=== PATIENT | female | born 1985 | race Caucasian/White ===

== ENCOUNTER 2023-12-14 10:06 | Outpatient (OUT) | payer OTHER, SELFPAY ==
--- NOTE | 2023-12-14 10:13 | US_ITS ---
Patient Name: ADAMS GALVAN MR#: [id number] : 1985 Exam Date: 12/14/2023 Ordering Doctor: DR KELSY ANGUIANO . RADIOLOGY REPORT PROCEDURE: MM TOMOSYNTHESIS DIAGNOSTIC BI, 12/14/2023, 09:19 US BREAST BI LIMITED, 12/14/2023, 10:40 COMPARISON: MG MAMM DIAGNOSTIC 3D ADRIEL CAD, 01/13/2023. INDICATIONS: breast lump in female N63.0 Calculator Name NCI Breast Cancer Risk Assessment Tool 5 Year Breast Cancer Risk 0.20% Lifetime Breast Cancer Risk 4.70% Personal Breast Cancer No Personal Ovarian Cancer No Treatments None Family Cancers None LOCATION: [facility] BREAST COMPOSITION: Heterogeneously dense,which may obscure small masses. FINDINGS: DIAGNOSTIC CATEGORY 4--SUSPICIOUS FOR MALIGNANCY. FINDING DOES NOT EXHIBIT CLASSIC FINDINGS OF BREAST CANCER: The breasts are stable in overall size and fibroglandular configuration with a nodular parenchymal pattern. Scattered calcifications. Benign appearing bilateral axillary lymph nodes. RIGHT BREAST: No mammographic abnormality to correspond to patient's axillary fullness. Right axillary ultrasound demonstrates a normal-size normal morphology lymph node at the 11 o'clock position measuring 9.4 x 9.5 x 13 mm with a thin cortex and hyper echogenic hypervascular hilum. LEFT BREAST: A new 10 x 6.7 x 9.2 mm partially circumscribed lobular nodule is noted in the lower inner quadrant, anterior to mid breast, this persists on spot images. Ultrasound demonstrates at the 7 o'clock position a 10.6 x 5.3 x 14.2 mm heterogeneous nodule solid and cystic components with a small amount of blood flow. Ultrasound core biopsy of this lesion is recommended. I am not entirely convinced that the ultrasound abnormality corresponds to the mammographic abnormality. Ultrasound core biopsy with clip placement and follow-up mammogram is required. If the ultrasound lesion is not congruent with the mammographic lesion, stereotactic biopsy may be required RECOMMENDATIONS: ULTRASOUND-GUIDED CORE BIOPSY: LEFT BREAST PLEASE NOTE: A NORMAL MAMMOGRAM DOES NOT EXCLUDE THE POSSIBILITY OF BREAST CANCER. A CLINICALLY SUSPICIOUS PALPABLE LUMP SHOULD BE BIOPSIED. Dictated by: Balaji Avila MD on 12/14/2023 at 11:32 Approved by: Balaji Avila MD on 12/14/2023 at 11:38
== END 2023-12-14 10:07 | disposition home or self-care (01) ==
LOC: MAMMO 10:06
PROVIDERS: PCP Family Medicine; Visit Provider Obstetrics & Gynecology
DX: N63.24 Unspecified lump in the left breast, lower inner quadrant (principal)
CPT/HCPCS: 76642; 77066; G0279

== ENCOUNTER 2024-01-05 09:21 | Day surgery (SDC) | payer OTHER, SELFPAY ==
--- NOTE | 2024-01-05 09:34 | MM_ITS ---
Patient Name: ADAMS GALVAN MR#: [id number] : 1985 Exam Date: 01/05/2024 Ordering Doctor: DR Henrry Lazcano . This report includes an Addendum and supersedes previous reports for this exam. RADIOLOGY REPORT PROCEDURE: MM POST BIOPSY LT COMPARISON: MM TOMOSYNTHESIS DIAGNOSTIC BI, 12/14/2023. INDICATIONS: Abnormal Mammogram BREAST COMPOSITION: The breasts are heterogeneously dense,which may obscure small masses. FINDINGS: Post-Procedure Mammogram for Marker Placement BIOPSY MARKER: A metallic marker has been placed in the targeted location within the lower inner quadrant of the left breast. BREAST FINDINGS: Postprocedural changes with subcutaneous air in the region of the targeted lesion the micro clip marker is slightly deeper likely related to spring affect Dictated by: Balaji Avila MD on 01/05/2024 at 11:42 Approved by: Balaji Avila MD on 01/05/2024 at 11:54 ADDENDUM: FINDINGS: DIAGNOSTIC CATEGORY 2--BENIGN FINDING: RECOMMENDATIONS: ROUTINE MAMMOGRAM AND CLINICAL EVALUATION IN 12 MONTHS. Dictated by: Balaji Avila MD on 01/11/2024 at 08:58 Approved by: Balaji Avila MD on 01/11/2024 at 08:58
--- NOTE | 2024-01-05 09:34 | US_ITS ---
Patient Name: ADAMS GALVAN MR#: [id number] : 1985 Exam Date: 01/05/2024 Ordering Doctor: DR Henrry Lazcano . This report includes an Addendum and supersedes previous reports for this exam. RADIOLOGY REPORT PROCEDURE: US BREAST VAC BX W/ CLIP LT COMPARISON: None. INDICATIONS: Abnormal Mammogram DESCRIPTION: After obtaining informed consent, a vacuum assisted ultrasound-guided biopsy was performed in the usual sterile manner. The location of the biopsy was then marked as indicated below. FINDINGS: RECOMMENDATIONS: SPECIMEN #, LOCATION: 5 samples left 7 o'clock breast mixed solid cystic lesion BIOPSY NEEDLE: 13 gauge Elite (r) vacuum core biopsy needle. MARKERS(S) PLACED: A single metallic marker was placed in the appropriate targeted location. MEDICATION: 3 cubic cm buffered % lidocaine without superficial, 6 cubic cm 1% with epinephrine deep COMPLICATIONS: None. PATHOLOGY LAB: Pending. CONCLUSION: 1. Uneventful ultrasound-guided breast biopsy. 2. Pathology results are pending. An addendum to this report will be provided after pathology results are available. Dictated by: Kayleigh Avila MD on 01/05/2024 at 10:55 Approved by: Kayleigh Avila MD on 01/05/2024 at 10:56 ADDENDUM: The pathology report is now available and shows benign findings concordant with the imaging findings. No evidence of malignancy. Pathology report was faxed to Dr. Lazcano's office and confirmed with Misty by telephone Dictated by: Kayleigh Avila MD on 01/11/2024 at 08:56 Approved by: Kayleigh Avila MD on 01/11/2024 at 08:57 US/US breast vac bx w/ clip LT IMPRESSION: 1. Uneventful ultrasound guided left breast core biopsy 2. Pathology results are pending. Electronically authenticated by: KAYLEIGH AVILA Date: 01/05/2024 11:42
[2024-01-05 09:40] VITALS: BP 116/75; PULSE 85; O2SAT 98
[2024-01-05] MEDS: LIDOCAINE HCL/EPINEPHRINE 10 ML, SODIUM BICARBONATE 1 MEQ INJ (10:30)
[2024-01-05] MEDS: LIDOCAINE HCL 10 ML, SODIUM BICARBONATE 1 MEQ INJ (10:30)
--- NOTE | 2024-01-05 11:19 | SUR.PREOP ---
12/24/23 Pt instructed on date, time, prep, and procedure.
== END 2024-01-05 11:00 | disposition home or self-care (01) ==
LOC: US 09:23
PROVIDERS: Radiology Diagnostic Radiology; PCP Family Medicine; Visit Provider Obstetrics & Gynecology
DX: N60.02 Solitary cyst of left breast (principal); N62 Hypertrophy of breast; R92.0 Mammographic microcalcification found on diagnostic imaging of breast
CPT/HCPCS: 19083; 77065; 88305; 99999

== ENCOUNTER 2025-08-21 14:54 | Outpatient (OUT) | payer OTHER, SELFPAY ==
--- OUTSIDE RECORDS SUMMARY | 2025-08-07 13:45 | XMS_ITS | Encounter Summary ---
Author Organization [facility] Address [address] [place] [address] Care Team Providers Care Data Warehouse Analyst Name Role Phone Jb Mendoza MD Primary Care Provider [phone] Source Comments In the event this information is protected by the Federal Confidentiality of Alcohol and Drug AbusePatient Records regulations: The Federal rules restrict any use of the information to criminally investigate or prosecute any alcohol or drug abuse patient.[facility] Reason for Visit * ReasonCommentsInjections Encounter Details DateTypeDepartmentCare Team (Latest Contact Info)Vnzuogavlja13/18/2025 1:45 PM ESTOffice Visit Dermatology [address] [place] [address] Megan Villarreal MD [address] [place] [address] Encounter for cosmetic procedure (Primary Dx) Social History Tobacco UseTypesPacks/DayYears UsedDateSmoking Tobacco: NeverSmokeless Tobacco: NeverAlcohol UseStandard Drinks/WeekCommentsYes0 (1 standard drink = 0.6 oz pure alcohol)holidays/occasionallySocial Connection and Isolation PanelAnswerDate RecordedIn a typical week, how many times do you talk on the phone with family, friends, or neighbors?More than three times a week07/22/2021How often do you get together with friends or relatives?Twice a week07/22/2021How often do you attend buddhist or protestant services?Never1Do you belong to any clubs or organizations such as buddhist groups, unions, fraternal or athletic groups, or school groups?No07/22/2021How often do you attend meetings of the clubs or organizations you belong to?Never07/22/2021re you , , , , never , or living with a partner?Bzdetgg6007/22/2021UDIT-C AnswerDate RecordedQ1: How often do you have a drink containing alcohol?2-4 times a month07/22/2021Q2: How many drinks containing alcohol do you have on a typical day when you are drinking?1 or Q3: How often do you have six or more drinks on one occasion?Never07/22/2021Overall Financial Resource Strain (CARDIA)AnswerDate RecordedHow hard is it for you to pay for the very basics like food, housing, medical care, and heating?Not hard at all07/22/2021HQ-2 AnswerDate RecordedPHQ-2 cyxll33809/21/2020Fin[facility] [place] of Occupational Health - Occupational Stress QuestionnaireAnswerDate RecordedDo you feel stress - tense, restless, nervous, or anxious, or unable to sleep at night because your mind is troubled all the time - these days?Not at all07/22/2021xercise Vital SignAnswerDate RecordedOn average, how many days per week do you engage in moderate to strenuous exercise (like a brisk walk)?3 days07/22/2021On average, how many minutes do you engage in exercise at this level?30 min07/22/2021Hunger Vital SignAnswerDate RecordedWithin the past 12 months, you worried that your food would run out before you got the money to buymore.Never true07/22/2021 Within the past 12 months, the food you bought just didn't last and you didn't have money to get more.Never true1PRAPARE - TransportationAnswerDate RecordedIn the past 12 months, has lack of transportation kept you from medical appointments or from getting medications?No07/22/2021In the past 12 months, has lack of transportation kept you from meetings, work, or from getting things needed for daily living?No07/22/2021Housing Stability Vital SignAnswerDate RecordedIn the last 12 months, was there a time when you were not able to pay the mortgage or rent on time?No07/22/2021In the last 12 months, how many places have you lived?In the last 12 months, was there a time when you did not have a steady place to sleep or slept in ashelter (including now)?No 1Area Deprivation IndexAnswerDate RecordedNational Score (1-100), lower number is lower pguy573408/07/2025State Score (1-10), lower number is lower risk4 08/07/2025Data from: https://www.neighborhoodatlas.medicine.[facility].edu/. Last address used for [address] [facility]08/07/2025CommentsNoSex and Gender InformationValueDate RecordedSex Assigned at BirthNot on fileLegal Sex Qorwll6508/21/2012 10:06 AM ESTGender IdentityNot on fileSexual OrientationNot on filedocumented as of this encounter Functional Status * Are you deaf or do you have serious difficulty hearing?AnswerDate of XtfjgsukkvYbbszqTe44/26/2015 8:42 AM Jody Lindsey Ma * Are you blind or do you have serious difficulty seeing, even when wearing glasses?AnswerDate of YfklyrxhvgOgkvggHq89/26/2015 8:42 AM Jody Lindsey Ma * Do you have serious difficulty walking or climbing stairs?AnswerDate of HyacxiezxaGqqgfmAz73/26/2015 8:42 AM Jody Lindsey Ma * Do you have difficulty dressing or bathing?AnswerDate of AssessmentAuthoVi 03/15/2015 8:42 AM EDTBarno Ma, Jody * Because of a physical, mental, or emotional condition, do you have difficulty doing errands alone such as visiting a doctor's office or shopping?AnswerDate of CsnxvmsmntGalxpmDv70/26/2015 8:42 AM Jody Lindsey Ma documented as of this encounter Mental Status * Because of a physical, mental, or emotional condition, do you have serious difficulty concentrating, remembering, or making decisions?AnswerEntry Date BxdphuGo94/26/2015 8:42 AM Jody Lindsey Ma documented in this encounter Patient Instructions * Patient Instructions* Trish Connors MA - 08/07/2025 1:56 PM EST Images from the original note were not included. Direct line to schedule [phone] or email [email or web address] Main campus: Wednesday & Bibi (Kevin Carter): Wednesday & Wednesday Start SM19 Hydroquinone 12% / Kojic Acid 6% / Niacinamide 2% / Vitamin C 1% Cream to dark spots only Skin Medicinals Your physician will send your prescription to the pharmacy through [email or web address]. Your Prescription You will receive an email from [email or web address] where you will follow the instructions within the email to provide your billing & shipping information. Your Verication Your medication will be shipped directly to you! Your Medication If you have any questions please email us at [email or web address] or call us at Can use code: [id number] Skincare Regimen AM Wash face with a cleanser 2. Then apply an antioxidant (Vitamin C, E, Ferulic acid) 3. After the anti-oxidant dries, apply an SPF at least 30 or higher You can apply makeup after sunscreen PM Wash face with a cleanser 2. Once skin is dry apply a Vitamin A based cream (retinol & adapalene are over the counter; tretinoin is prescription). These products can cause dryness and irritation, so use every other night or as tolerated. 3. It is ok to apply a moisturizer on top that contains hyaluronic acid 4. The nights you do not use a vitamin A cream, you can use a moisturizer alone or a growth factor/peptide product OTC products you can purchase on your own Antioxidant: Maelove Glow maker, The Ordinary Vitamin C 23% suspension SPF: [place]ay UltraSheer Antihelios Retinol: Differin 0.1% gel (adapalene), MARIMAR, Neutrogena Rapid wrinkle repair Moisturizer: Neutrogena Hydroboost, Maelove Script Editor Gel, [place] Hyal B5 documented in this encounter Progress Notes * Trish Connors MA - 08/07/2025 1:45 PM EST Patient last seen Dr. Bautista 07/31/2024 for botox Start SM19 Hydroquinone 12% / Kojic Acid 6% / Niacinamide 2% / Vitamin C 1% Cream to dark spots only PROCEDURE: Neurotoxin injection Nicolas is a 40 year old female that presents today for neurotoxin injection. Risks, benefits, alternatives, and personnel discussed with patient. Verbal consent obtained for neurotoxin injection. Patient agrees and wants to proceed. Discussed risks of bruising, headache, painat injection site, asymmetry, muscle twitching, numbness, eyebrow or eyelid ptosis, diplopia. Also discussed temporary nature of effects and multiple sessions required. TODAY'S PROCEDURE: DYSPORT The area was cleaned and prepped in a sterile fashion. SITE 1.) 0.8 cc's / 40 units injected intramuscularly into the glabella SITE 2.) 0.4 cc's / 20 units injected intramuscularly into the forehead SITE 3.) 0.2 cc's / 10 units injected intramuscularly into the [place] lake's feet region (brow lift only) Dilution 5 dysport units/0.1cc (6:1) Lot #:[id number] Exp: 01/17/2027 PLAN: 1. Patient to return in 3-4 months to receive another injection. 2. Post-operative instructions were reviewed with patient in verbal form. Charge code: 70 dysport units + employee discount Aspire: 20.00 off DARLYN Leary MD August 07, 2025 documented in this encounter Plan of Treatment DateTypeDepartmentCare Team (Latest Contact Info)Ovhthhwkrzl52/21/2026 2:45 PM EDTOffice Visit Dermatology [address] [place] [address] Megan Villarreal MD [address] [place], [place] [id number] botoxdocumented as of this encounter Visit Diagnoses Diagnosis Encounter for cosmetic procedure- Primary documented in this encounter Care Teams Team MemberRelationshipSpecialtyStart DateEnd Date Jb Mendoza MD [address] [place] [address] PCP - GeneralFamily Medicine02/05/15documented as of this encounter
--- NOTE | 2025-08-21 14:58 | MM_ITS ---
Patient Name: ADAMS GALVAN MR#: [id number] : 1985 Exam Date: 08/21/2025 Ordering Doctor: DR KELSY ANGUIANO . RADIOLOGY REPORT PROCEDURE: MM TOMOSYNTHESIS SCREENING BI COMPARISON: MM POST BIOPSY LT, 01/05/2024. MM TOMOSYNTHESIS DIAGNOSTIC BI, 12/14/2023. MG MAMM DIAGNOSTIC 3D ADRIEL CAD, 01/13/2023. INDICATIONS: Screening Calculator Name NCI Breast Cancer Risk Assessment Tool 5 Year Breast Cancer Risk 0.80% Lifetime Breast Cancer Risk 7.40% Personal Breast Cancer No Personal Ovarian Cancer No Treatments None Family Cancers None LOCATION: [facility] BREAST COMPOSITION: The breasts are heterogeneously dense, which may obscure small masses. FINDINGS: RIGHT BREAST: No significant suspicious finding. Benign-appearing calcifications are redemonstrated. LEFT BREAST: No significant suspicious finding. Benign-appearing calcifications are redemonstrated. There is a biopsy clip. Similar focal asymmetries are present. DIAGNOSTIC CATEGORY 2--BENIGN FINDING. NO CHANGE FROM COMPARISON. RECOMMENDATIONS: ROUTINE MAMMOGRAM AND CLINICAL EVALUATION IN 12 MONTHS. Dictated by: Yovani Rich MD on 08/21/2025 at 16:17 Approved by: Yovani Rich MD on 08/21/2025 at 16:22
--- OUTSIDE RECORDS SUMMARY | 2025-08-21 14:58 | XMS_ITS | Clinical Summary ---
Author Organization [facility] Address [address] [place] [address] Care Team Providers Care [employer] Principal Name Role Phone Unavailable Primary Care Provider Unavailabl e Allergies No known active allergies Medications MedicationSigDispense QuantityRefillsLast FilledStart DateEnd DateStatus phentermine (Adipex-P) 37.5 MG tablet Take 37.5 mg by mouth in the morning. Take before meals.Active Tirzepatide-Weight Management (Zepbound) 10 MG/0.5ML solution auto-injector Indications:Hormone imbalance,Metabolic syndrome,PCOS (polycystic ovarian syndrome)INJECT 0.5 ML UNDER THE SKIN 1 (ONE) TIME PER WEEK 2 mL 5Active Active Problems ProblemNoted DateDiagnosed DateAbnormal uterine qlpobjof26/22/2023nxiety and yzdziagtzd65/22/2023ervical xdgylmuxb99/22/2023History of loop electrical excision procedure (LEEP)03/11/2023Hormone scoinjtdu25/22/2023LGSIL on Pap smear of jysgcf8403/11/2023Metabolic rvuiolzp25/22/2023COS (polycystic ovarian syndrome)03/11/2023 Encounters DateTypeDepartmentCare YttaBgvgmsuzakm65/24/2025Telephone [facility] [address] [place] [address] [place] [address] Tamika Alston MA from Last 3 Months Social History Tobacco UseTypesPacks/DayYears UsedDateSmoking Tobacco: Never Assessed CommentsNoSex and Gender InformationValueDate RecordedSex Assigned at BirthNot on fileLegal ZyqZspyje75/15/2023 6:45 PM EDTGender IdentityNot on fileSexual OrientationNot on file Last Filed Vital Signs Vital SignReadingTime TakenCommentsBlood Edochfpt192/70003/11/2023 10:23 AM EDT Pulse--Temperature--Respiratory Rate--Oxygen Saturation--Inhaled Oxygen Concentration--Oglmnd44.7 kg (136 lb)03/11/2023 10:23 AM OBTBwikmc827.9 cm (5' 1 )03/11/2023 10:23 AM EDTBody Mass Index25.7003/11/2023 10:23 AM EDT Plan of Treatment DateTypeDepartmentCare Team (Latest Contact Info)Otquigtgrir71/15/2025 11:20 AM ESTProcedure Visit [facility] [address] [address] Henrry Lazcano DO [address] [place] [address] Insurance [facility] Address: [facility] [id number] [place] [phone]
--- OUTSIDE RECORDS SUMMARY | 2025-08-21 14:58 | XMS_ITS | Clinical Summary ---
Author Organization [facility] Address [address] [place] [address] Care Team Providers Care Energy Rater Name Role Phone Jb Mendoza MD Primary Care Provider Allergies No known active allergies Medications MedicationSigDispense QuantityRefillsLast FilledStart DateEnd DateStatus hydroquinone (ELDOQUIN FORTE) 4 % cream Apply to dark spots every other night at bedtime 30 g 5Active tretinoin (RETIN-A) 0.025 % topical cream Apply every other night at bedtime. Use moisturizer on top. 45 g 12:37 PM EST5Active tretinoin (RETIN-A) 0.05 % cream Indications:RhytidesApply a small pea-sized amount to entire face nightly. Start three times a week and increase as tolerated. 45 g 1107 10:49 AM EDTDiscontinued Active Problems ProblemNoted DateDiagnosed DateObesity, Class I, BMI 30-34.9109/23/2020 Papanicolaou smear of cervix with low grade squamous intraepithelial lesion (LGSIL)12/29/2016Chronic iohgidnmrfkc45/21/5895Oslbyqfmxtviyu73/21/2014Hirsutism 01/08/2014Acne01/08/2014PCOS (polycystic ovarian syndrome)12/26/2013Irregular menstrual xlhanfyi78/08/2014Thickened fsghehufsct02/08/2014 Resolved Problems ProblemNoted DateDiagnosed DateResolved DatePatient left without being seen ounseling and coordination of care Encounters DateTypeDepartmentCare QlhlVvzmjqaxhml21/19/2025 Patient [facility] Home Delivery [address] [place] [address] Melissa Spencer CPhT RE: Home Delivery Pharmacy Order08/07/2025 1:45 PM ESTOffice Visit Dermatology [address] [place] [address] Megan Villarreal MD Encounter for cosmetic procedure (Primary Dx)08/06/2025Travelfrom Last 3 Months Immunizations ImmunizationAdministration DatesNext Dueinfluenza (IIV3) vaccine, trivalent, PF (AFLURIA, FLUARIX, FLULAVAL, FLUVIRIN, FLUZONE)07/13/2025,07/14/2024influenza vaccine, unspecified qnciwpxzdlu15/31/2023,07/20/2022,07/16/2021,07/07/2018 Family History Medical HistoryRelationCommentsNo breast, ovary, uterus, colon cancerOther fam.hx.neg.for breast, assembler final or colon CARelationStatusCommentsFatherAliveMother AliveOther Social History Tobacco UseTypesPacks/DayYears UsedDateSmoking Tobacco: NeverSmokeless Tobacco: NeverAlcohol UseStandard Drinks/WeekCommentsYes0 (1 standard drink = 0.6 oz pure alcohol)holidays/occasionallySocial Connection and Isolation PanelAnswerDate RecordedIn a typical week, how many times do you talk on the phone with family, friends, or neighbors?More than three times a week07/22/2021How often do you get together with friends or relatives?Twice a week07/22/2021How often do you attend restorationist or roman catholic services?Never1Do you belong to any clubs or organizations such as restorationist groups, unions, fraternal or athletic groups, or school groups?No07/22/2021How often do you attend meetings of the clubs or organizations you belong to?Never1Are you , , , , never , or living with a partner?Mnoayny8407/22/2021UDIT-C AnswerDate RecordedQ1: How often do you have [...] and heating?Not hard at all07/22/2021HQ-2 AnswerDate RecordedPHQ-2 uyvcc24909/21/2020[facility] [place] of Occup[facility] Health - Occupational Stress QuestionnaireAnswerDate [...] you didn't have money to get more.Never true07/22/2021RAPARE - TransportationAnswerDate RecordedIn the past 12 months, [...] sleep or slept in ashelter (including now)?No 07/22/2021rea Deprivation IndexAnswerDate RecordedNational Score (1-100), lower number is lower hxpu310508/07/2025State Score (1-10), lower number is lower risk4 08/07/2025Data from: https://www.neighborhoodatlas.[facility].edu/. Last address used for t[address]08/07/2025CommentsNoSex and Gender InformationValueDate RecordedSex Assigned at BirthNot on fileLegal Sex Pydbsb6208/21/2012 10:06 AM ESTGender IdentityNot on fileSexual OrientationNot on file Last Filed Vital Signs Vital SignReadingTime TakenCommentsBlood Qkiuxjvb746/7207/22/2021 5:54 PM EDT Puohl302507/22/2021 5:54 PM IXCUayeycuzrau55.9 ??C (98.4 ??F)02/05/2015 9:36 AM EDTRespiratory Kjsx211601/09/2015 6:14 AM EDTOxygen Bzehozqehc55%07/22/2021 5:54 PM EDTInhaled Oxygen Concentration--Gcrycc27.8 kg (176 lb)07/22/2021 5:54 PM EDT Dxuybl965.9 cm (5' 1 )02/15/2018 2:16 PM EDTBody Mass Index33.25002/15/2018 2:16 PM EDT Plan of Treatment DateTypeDepartmentCare Team (Latest Contact Info)Ksiorlxpbwk92/21/2026 2:45 PM EDTOffice Visit Dermatology [address] [place] [address] Megan Villarreal MD [address] [place] [address] botoxHealth MaintenanceDue DateLast DoneCommentsAnxiety Gopujufmf64/11/2001 Depression Jhhwwkhpv25/11/2001DTaP,Tdap,Td Vaccine (1 - Tdap)2002Hepatitis B Vaccine (1 of 3 - 19+ 3-dose series)2002HPV Vaccine (1 - 3-dose SCDM series)2010Cervical Cancer Utrueohwj62, 06/29/2017, 04/21/2016, Additional history existsMammogram Zmflzvdbv80/, 01/13/2023ovid-19 Vaccine ( season)/, 08/16/2021 Influenza PtvznpzLoqywjwlh31/24/2025, 07/14/2024, 07/20/2023, Additional history existsHIV ScreeningDiscontinuedHepatitis C ScreeningDiscontinued Procedures Procedure NamePriorityDate/TimeAssociated DiagnosisCommentsPAP FLUID CERVICAL GIFUUTRXTZJizmocu41/10/2017 10:25 AM EDT Papanicolaou smear of cervix with low grade squamous intraepithelial lesion (LGSIL) Cervical high risk HPV (human papillomavirus) test positive from Last 3 Months or Most Recently Relevant to Health Maintenance Results * (ABNORMAL) PAP FLUID CERVICAL DIAGNOSTIC (06/29/2017 10:25 AM EDT)Component ValueRef RangeTest MethodAnalysis TimePerformed AtPathologist Signature Liquified Natural Gas Specialist ADDITIONAL PROCEDURES PRESENT ---Abnormal Pap Test - Epithelial Cell Abnormality--- Specimen originated from [facility] Specimen #: [id number] Submitting Physician: RAJINDER DAVE M.D. ??(M66) SPECIMEN SUBMITTED A: CERVICAL, DIAGNOSTIC, FLUID FINAL DIAGNOSIS A. CERVICAL, DIAGNOSTIC, FLUID Satisfactory for interpretation. Epithelial cell abnormality. Low grade squamous intraepithelial lesion (LSIL). This specimen has been analyzed by the ThinPrep Imaging System, an automated imaging and review system, which assists the laboratory in evaluating cells on ThinPrep Pap tests. ??Following automated imaging, selected grier from every slide are reviewed by a invoicing specialist. ESTEFANY SANTOS M.D. ? (Electronic Signature) ADDITIONAL PROCEDURE(S) HUMAN PAPILLOMA VIRUS ? Date Ordered: ??06/30/2017 ? Date Reported: ??07/02/2017 Procedure Results and Interpretation Negative for HPV DNA high risk type 16 by PCR. Negative for HPV DNA high risk type 18 by PCR. Negative for HPV DNA high risk types: 31,33,35,39,45,51,52,56,58,59,66,68 by PCR. This test was developed and its performance characteristics determined by [facility]'s [facility] [place] ([facility]). It has not been cleared or approved by the FDA. -[facility] is regulated under CLIA as qualified to perform high-complexity testing. This test is used for clinical purposes. It should not be regarded as investigational or for research. CLINICAL DATA ABNORMAL PAP, HPV Testing: Yes, automatic HPV patients over 30 Date of Last Menstrual Period: 06/08/2017 STAINS A: ??CERVICAL, DIAGNOSTIC, FLUID ? THIN PREP POLY PACKER AND HEAT SEALER Date of Report: 07/07/2017 Date of Procedure: 06/29/2017 Date of Receipt: 06/30/2017 Submitted by: RAJINDER DAVE M.D. ??(M66) Location: [facility] SKATING RINK MANAGER Diagnostic interpretation performed at [facility], [address] [place], [place] [address]. The Pap Smear is a screening test for cervical cancer. False negative results occur with all screening tests, emphasizing the need for rescreening at recommended intervals, and clinical correlation.(A)COPATHPLUS Specimen (Source)Anatomical Location / LateralityCollection Method / Volume Collection TimeReceived TimeSpecimen from uterine cervix (specimen)CERVICAL / Tnqqmvl2506/29/2017 10:25 AM EDT1 Narrative Authorizing ProviderResult TypeResult StatusRajinder Dave DOCYTOLOGYEdited Result - FinalPerforming OrganizationAddressCity/State/ZIP CodePhone Number [facility] [address] [place], [place] [phone] from Last 3 Months or Most Recently Relevant to Health Maintenance Insurance * Guarantor: Nicolas Albright TypeRelation to PatientDate of PhoneBilling AddressPersonal/UfjldlQilo1985 [address] [place] [address] * Guarantor: Nicolas Albright TypeRelation to PatientDate of PhoneBilling AddressSelf JhpIncs90 1985 [address] [place] [address] Care Teams Team MemberRelationshipSpecialtyStart DateEnd Date Jb Mendoza MD [address] [place], [place] [id number] [facility] [place] [facility]02/05/15
--- OUTSIDE RECORDS SUMMARY | 2025-08-21 14:58 | XMS_ITS | Encounter Summary ---
Author Organization [facility] Address [address] [place] [address] Care Team Providers Care Litigation Specialist Name Role Phone Jb Mendoza MD Primary Care Provider [phone] Source Comments In the event this information is protected by the Federal Confidentiality of Alcohol and Drug AbusePatient Records regulations: The Federal rules restrict any use of the information to criminally investigate or prosecute any alcohol or drug abuse patient.[facility] Encounter Details DateTypeDepartmentCare Team (Latest Contact Info)Svtfgoaifdq55/19/2025 Patient [facility] Home Delivery [facility] [place] [address] Melissa Spencer CPhT RE: Home Delivery Pharmacy Order Social History Tobacco UseTypesPacks/DayYears UsedDateSmoking Tobacco: NeverSmokeless Tobacco: NeverAlcohol UseStandard Drinks/WeekCommentsYes0 (1 standard drink = 0.6 oz pure alcohol)holidays/occasionallySocial Connection and Isolation PanelAnswerDate RecordedIn a typical week, how many times do you talk on the phone with family, friends, or neighbors?More than three times a week07/22/2021How often do you get together with friends or relatives?Twice a week07/22/2021How often do you attend jain or uatsdin services?Never07/22/2021o you belong to any clubs or organizations such as jain groups, unions, fraternal or athletic groups, or school groups?No07/22/2021How often do you attend meetings of the clubs or organizations you belong to?Never07/22/2021re you , , , , never , or living with a partner?Lieppwd7907/22/2021UDIT-C AnswerDate RecordedQ1: How often do you have [...] and heating?Not hard at all07/22/2021HQ-2 AnswerDate RecordedPHQ-2 pqejx38109/21/2020[facility] [place] of Occupational Health - Occupational Stress QuestionnaireAnswerDate [...] RecordedNational Score (1-100), lower number is lower zzaf504008/07/2025State Score (1-10), lower number is lower risk4 08/07/2025Data from: https://www.neighborhoodatlas.medicine.[facility].edu/. Last address used for [address]08/07/2025CommentsNoSex and Gender InformationValueDate RecordedSex Assigned at BirthNot on fileLegal Sex Cdqgdj9208/21/2012 10:06 AM ESTGender IdentityNot on fileSexual OrientationNot on filedocumented as of this encounter Functional Status * Are you deaf or do you have serious difficulty hearing?AnswerDate of LdvvagwdqhJojfasWi59/26/2015 8:42 AM Jody Lindsey Ma * Are you blind or do you have serious difficulty seeing, even when wearing glasses?AnswerDate of CscmtnlnoiPvlutlXv94/26/2015 8:42 AM Jody Lindsey Ma * Do you have serious difficulty walking or climbing stairs?AnswerDate of IepmqovrqxNerbzzJp05/26/2015 8:42 AM Jody Lindsey Ma * Do you have difficulty dressing or bathing?AnswerDate of AssessmentAuthorNo 03/15/2015 8:42 AM Jody Lindsey Ma * Because of a physical, mental, or emotional condition, do you have difficulty doing errands alone such as visiting a doctor's office or shopping?AnswerDate of XscehkdpmcTuugonJj24/26/2015 8:42 AM Jody Lindsey Ma documented as of this encounter Mental Status * Because of a physical, mental, or emotional condition, do you have serious difficulty concentrating, remembering, or making decisions?AnswerEntry Date ObefopNp23/26/2015 8:42 AM Jody Lindsey Ma documented in this encounter Plan of Treatment DateTypeDepartmentCare Team (Latest Contact Info)Nkvkkzsxvue99/21/2026 2:45 PM EDTOffice Visit Dermatology [address] [facility] [place] [address] Megan Villarreal MD [address] [place] [address] botoxdocumented as of this encounter Visit Diagnoses Not on filedocumented in this encounter Care Teams Team MemberRelationshipSpecialtyStart DateEnd Date Jb Mendoza MD [address] [place] [address] PCP - GeneralFamily Medicine02/05/15documented as of this encounter
== END 2025-08-21 14:55 | disposition home or self-care (01) ==
LOC: MAMMO 14:55
PROVIDERS: PCP Family Medicine; Visit Provider Obstetrics & Gynecology
DX: Z12.31 Encounter for screening mammogram for malignant neoplasm of breast (principal)
CPT/HCPCS: 77063; 77067

== ENCOUNTER 2025-09-03 20:32 | Outpatient (REF) | payer OTHER, SELFPAY ==
--- OUTSIDE RECORDS SUMMARY | 2025-09-03 11:20 | XMS_ITS | Encounter Summary ---
Author Organization [facility] Address [address] [place] [address] Care Team Providers Care Osteopathic Physician Name Role Phone Unavailable Primary Care Provider Unavailabl e Reason for Visit * ReasonCommentsGynecologic Exam Encounter Details DateTypeDepartmentCare Team (Latest Contact Info)Uggtvckflbp36/15/2025 11:20 AM ESTProcedure Visit [facility] [address] [place] [phone] Henrry Lazcano, DO [address] [place], [place] [phone] Well woman exam with routine gynecological exam Social History Tobacco UseTypesPacks/DayYears UsedDateSmoking Tobacco: Never Assessed CommentsNoSex and Gender InformationValueDate RecordedSex Assigned at BirthNot on fileLegal ZfaCflqxe33/15/2023 6:45 PM EDTGender IdentityNot on fileSexual OrientationNot on filedocumented as of this encounter Last Filed Vital Signs Vital SignReadingTime TakenCommentsBlood Ewfggxdu277/6209/03/2025 11:45 AM EST Pulse--Temperature--Respiratory Rate--Oxygen Saturation--Inhaled Oxygen Concentration--Melvfz57 kg (130 lb)09/03/2025 11:45 AM ESTHeight--Body Mass Index24.5606 10:23 AM EDTdocumented in this encounter Plan of Treatment NameTypePriorityAssociated DiagnosesOrder ScheduleTHIN PREP TIS PAP AND HR HPV DNAPathology and CytologyRoutine Well woman exam with routine gynecological exam Ordered: 09/03/2025documented as of this encounter Visit Diagnoses Diagnosis Well woman exam with routine gynecological exam Routine gynecological examination documented in this encounter
--- OUTSIDE RECORDS SUMMARY | 2025-09-03 20:37 | XMS_ITS | Clinical Summary ---
Author Organization [facility] Address [address] [place] [address] Care Team Providers Care Parent Aide Name Role Phone Jb Mendoza MD Primary Care Provider [phone] Allergies No known active allergies Medications MedicationSigDispense [...] with low grade squamous intraepithelial lesion (LGSIL)12/29/2016Chronic gtfurjesjphx28/21/8486Piapzplqloswxd83/21/2014Hirsutism 01/08/2014Acne01/08/2014PCOS (polycystic ovarian syndrome)12/26/2013Irregular menstrual ssbnodwa03/08/2014Thickened bsirydbyhdx83/08/2014 Resolved Problems ProblemNoted DateDiagnosed DateResolved DatePatient left without being seen ounseling and coordination of care Encounters DateTypeDepartmentCare KqehSyulxqvscvk72/19/2025 Patient [facility] Home Delivery [address] [place] [address] Melissa Spencer CPhT RE: Home Delivery Pharmacy Order08/07/2025 1:45 PM ESTOffice Visit Dermatology [address] [place] [address] Megan Villarreal MD Encounter for cosmetic procedure (Primary Dx)08/06/2025Travelfrom Last 3 Months Immunizations ImmunizationAdministration DatesNext Dueinfluenza (IIV3) vaccine, trivalent, PF (AFLURIA, FLUARIX, FLULAVAL, FLUVIRIN, FLUZONE)07/13/2025,07/14/2024influenza vaccine, unspecified faxqiktjcbs66/31/2023,07/20/2022,07/16/2021,07/07/2018 Family History Medical HistoryRelationCommentsNo breast, ovary, uterus, colon cancerOther fam.hx.neg.for breast, bight maker or colon CARelationStatusCommentsFatherAliveMother AliveOther Social History Tobacco [...] relatives?Twice a week07/22/2021How often do you attend jehovah's witness or baptism services?Never1Do you belong to any clubs or organizations such as jehovah's witness groups, unions, fraternal or athletic groups, or school groups?No07/22/2021How often do you attend meetings of the clubs or organizations you belong to?Never1Are you , , , , never , or living with a partner?Fclytqm2707/22/2021UDIT-C AnswerDate RecordedQ1: How often do you have [...] and heating?Not hard at all07/22/2021HQ-2 AnswerDate RecordedPHQ-2 vncjr94309/21/2020[facility] [place] of Occupational Health - Occupational Stress QuestionnaireAnswerDate [...] RecordedNational Score (1-100), lower number is lower eumq569708/07/2025State Score (1-10), lower number is lower risk4 08/07/2025Data from: https://www.neighborhoodatlas.[facility].edu/. Last address used for [address]08/07/[address]CommentsNoSex and Gender InformationValueDate RecordedSex Assigned at BirthNot on fileLegal Sex Fakffo0708/21/2012 10:06 AM ESTGender IdentityNot on fileSexual OrientationNot on file Last Filed Vital Signs Vital SignReadingTime TakenCommentsBlood Yqduiqwt483/7207/22/2021 5:54 PM EDT Roeut721307/22/2021 5:54 PM TXJEzdydsibvzd43.9 ??C (98.4 ??F)02/05/2015 9:36 AM EDTRespiratory Dios935001/09/2015 6:14 AM EDTOxygen Wxkfcrcgvh73%07/22/2021 5:54 PM EDTInhaled Oxygen Concentration--Dajmis91.8 kg (176 lb)07/22/2021 5:54 PM EDT Jcmgds568.9 cm (5' 1 )02/15/2018 2:16 PM EDTBody Mass Index33.25002/15/2018 2:16 PM EDT Plan of Treatment DateTypeDepartmentCare Team (Latest Contact Info)Gkzinesnkie96/21/2026 2:45 PM EDTOffice Visit Dermatology [address] [place] [address] Megan Villarreal MD [address] [place] [address] botoxHealth MaintenanceDue DateLast DoneCommentsAnxiety Vuoyqrblk02/11/2001 Depression Rovnpgixn47/11/2001DTaP,Tdap,Td Vaccine (1 - Tdap)2002Hepatitis B Vaccine (1 of 3 - 19+ 3-dose series)2002HPV Vaccine (1 - 3-dose SCDM series)2010Cervical Cancer Kgqyjpdqo10, 06/29/2017, 04/21/2016, Additional history existsMammogram Lecwnsubi61/, 01/13/2023ovid-19 Vaccine ( season)/, 08/16/2021 Influenza NhlgvhyZdfknvvne88/24/2025, 07/14/2024, 07/20/2023, Additional history existsHIV ScreeningDiscontinuedHepatitis C ScreeningDiscontinued Procedures Procedure NamePriorityDate/TimeAssociated DiagnosisCommentsPAP FLUID CERVICAL PXOHJQBWNBQskdxam47/10/2017 10:25 AM EDT Papanicolaou smear of cervix with low grade squamous intraepithelial lesion (LGSIL) Cervical high risk HPV (human papillomavirus) test positive from Last 3 Months or Most Recently Relevant to Health Maintenance Results * (ABNORMAL) PAP FLUID CERVICAL DIAGNOSTIC (06/29/2017 10:25 AM EDT)Component ValueRef RangeTest MethodAnalysis TimePerformed AtPathologist Signature Data Warehouse Architect ADDITIONAL PROCEDURES PRESENT ---Abnormal Pap Test - Epithelial Cell Abnormality--- Specimen originated from [facility] Specimen #: [id number] Submitting Physician: RAJINDER DAVE M.D. ??(M66) SPECIMEN [...] from every slide are reviewed by a car attendant. ESTEFANY SANTOS M.D. ? (Electronic Signature) ADDITIONAL PROCEDURE(S) HUMAN PAPILLOMA VIRUS ? Date Ordered: ??06/30/2017 ? Date Reported: ??07/02/2017 Procedure Results and Interpretation Negative for HPV DNA high risk type 16 by PCR. Negative for HPV DNA high risk type 18 by PCR. Negative for HPV DNA high risk types: 31,33,35,39,45,51,52,56,58,59,66,68 by PCR. This test was developed and its performance characteristics determined by [facility]'s [facility] Pathology and Laboratory Medicine [place] ([facility]). It has not been cleared or approved by the FDA. -[facility] is regulated under CLIA as qualified to perform high-complexity testing. This test is used for clinical purposes. It should not be regarded as investigational or for research. CLINICAL DATA ABNORMAL PAP, HPV Testing: Yes, automatic HPV patients over 30 Date of Last Menstrual Period: 06/08/2017 STAINS A: ??CERVICAL, DIAGNOSTIC, FLUID ? THIN PREP ADULT SERVICES LIBRARIAN Date of Report: 07/07/2017 Date of Procedure: 06/29/2017 Date of Receipt: 06/30/2017 Submitted by: RAJINDER DAVE M.D. ??(M66) Location: [facility] PRETZEL TWISTING MACHINE OPERATOR Diagnostic interpretation performed at [facility], [address] [place], [place] [id number]. The Pap Smear is a screening test for cervical cancer. False negative results occur with all screening tests, emphasizing the need for rescreening at recommended intervals, and clinical correlation.(A)COPATHPLUS Specimen (Source)Anatomical Location / LateralityCollection Method / Volume Collection TimeReceived TimeSpecimen from uterine cervix (specimen)CERVICAL / Ifbsyql3606/29/2017 10:25 AM EDT1 Narrative Authorizing ProviderResult TypeResult StatusRajinder Dave DOCYTOLOGYEdited Result - FinalPerforming OrganizationAddressCity/State/ZIP CodePhone Number [facility] [address] [place], [place] [phone] from Last 3 Months or Most Recently Relevant to Health Maintenance Insurance * Guarantor: Nicolas Albright TypeRelation to PatientDate of PhoneBilling AddressPersonal/SfdivxUugm1985 [address] [place] [address] * Guarantor: Nicolas Albright TypeRelation to PatientDate of PhoneBilling AddressSelf NdwKinq41 1985 [address] [place] [address] Care Teams Team MemberRelationshipSpecialtyStart DateEnd Date Jb Mendoza MD [address] [place], [place] [phone] [facility]/15
--- OUTSIDE RECORDS SUMMARY | 2025-09-03 20:37 | XMS_ITS | Encounter Summary ---
Author Organization [facility] Address [address] [place] [address] Care Team Providers Care Trigonometry Teacher Name Role Phone Unavailable Primary Care Provider Unavailabl e Encounter Details DateTypeDepartmentCare Team (Latest Contact Info)Syibpqeknfo58/15/2025Bamboo flowsheet [facility] [address] [place] [address] Henrry Lazcano, [address] [place], [facility] Social History Tobacco UseTypesPacks/DayYears UsedDateSmoking Tobacco: Never Assessed CommentsNoSex and Gender InformationValueDate RecordedSex Assigned at BirthNot on fileLegal EahBxwroc88/15/2023 6:45 PM EDTGender IdentityNot on fileSexual OrientationNot on filedocumented as of this encounter Plan of Treatment Not on file documented as of this encounter Visit Diagnoses Not on filedocumented in this encounter
--- OUTSIDE RECORDS SUMMARY | 2025-09-03 20:37 | XMS_ITS | Encounter Summary ---
Author Organization [facility] Address [address] [place] [address] Care Team Providers Care Manager Human Capital Name Role Phone Unavailable Primary Care Provider Unavailabl e Encounter Details DateTypeDepartmentCare Team (Latest Contact Info)Oyozdlfthqy63/02/2025Clinisync Result Encounter [facility] External Department Unsolicited Kelsy Lazcano, DO [address] [place] [address] Social History Tobacco UseTypesPacks/DayYears UsedDateSmoking Tobacco: Never Assessed CommentsNoSex and Gender InformationValueDate RecordedSex Assigned at BirthNot on fileLegal TvxYfsxog49/15/2023 6:45 PM EDTGender IdentityNot on fileSexual OrientationNot on filedocumented as of this encounter Plan of Treatment Not on file documented as of this encounter Procedures Procedure NamePriorityDate/TimeAssociated DiagnosisCommentsMM TOMOSYNTHESIS SCREENING BI08/21/2025 4:22 PM EST documented in this encounter Results * MM TOMOSYNTHESIS SCREENING BI (08/21/2025 4:22 PM EST)Anatomical Region LateralityModalityOtherSpecimen (Source)Anatomical Location / Laterality Collection Method / VolumeCollection TimeReceived Time08/21/2025 4:22 PM EST Narrative 08/21/2025 4:23 PM EST [facility] ?[address] ? [place] [address] ? Mammography Report ? Signed ? Patient: TOCCACELI,DENILLE L ?MR#: [id number] ?? : 1985 ?Acct:[id number] ?? Age/Sex: 40 / F ?ADM Date: 12/02/25 ?? Loc: MAMMO ? Attending Dr: Kelsy Lazcano D.O. ? Ordering Physician: Kelsy Lazcano D.O. ?Results: ? Date of Service: 08/21/25 ?Follow Up: ? Procedure(s): MM tomosynthesis screening BI ?? Accession Number(s): [id number] ? cc: Kelsy Lazcano D.O.; KAYLEIGH BONNER ? Patient Name: ? NICOLAS TOCCACELI ? MR#: [id number] ? : 1985 ? Exam Date: 08/21/2025 ?? Ordering Doctor: DR KELSY LAZCANO . ? RADIOLOGY REPORT ? PROCEDURE: ? MM TOMOSYNTHESIS SCREENING BI ? COMPARISON: ? MM POST BIOPSY LT, 01/05/2024. ??MM TOMOSYNTHESIS DIAGNOSTIC BI, ?? 12/14/2023. ??MG MAMM DIAGNOSTIC 3D ADRIEL CAD, 01/13/2023. ? INDICATIONS: ? Screening ? Calculator Name ? NCI Breast Cancer Risk Assessment Tool ?? 5 Year Breast Cancer Risk ? 0.80% ?? Lifetime Breast Cancer Risk ? 7.40% ?? Personal Breast Cancer ?No ?? Personal Ovarian Cancer ? No ?? Treatments ? None ?? Family Cancers ? None ? LOCATION: ? [facility] ? BREAST COMPOSITION: ? The breasts are heterogeneously dense, which may ?? obscure small masses. ? FINDINGS: ? RIGHT BREAST: ??No significant suspicious finding. ??Benign-appearing ?? calcifications are redemonstrated. ? LEFT BREAST: ??No significant suspicious finding. ??Benign-appearing ?? calcifications are redemonstrated. ??There is a biopsy clip. ??Similar focal ?? asymmetries are present. ? DIAGNOSTIC CATEGORY 2--BENIGN FINDING. NO CHANGE FROM COMPARISON. ? RECOMMENDATIONS: ? ROUTINE MAMMOGRAM AND CLINICAL EVALUATION IN 12 MONTHS. ? Dictated by: Yovani Rich MD on 08/21/2025 at 16:17 ? Approved by: Yovani Rich MD on 08/21/2025 at 16:22 ? Dictated By: ?Yovani Rich M.D. ? Signed By: ?08/21/253 ? DD/ 1622 ? TD/TT: ? Product Communications Manager: Procedure Note Radiology, Radiologist, MD - 08/21/2025 [place] [address] Mammography Report Signed Patient: NICOLAS ALBRIGHT LMR#: [id number] : 1985Acct:[id number] Age/Sex: 40 / FADM Date: 08/21/25 Loc: MAMMO Attending Dr: Kelsy Lazcano D.O. Ordering Physician: Kelsy Lazcano D.O.Results: Date of Service: 08/21/25Follow Up: Procedure(s): MM tomosynthesis screening BI Accession Number(s): [id number] cc: Kelsy Lazcano D.O.; KAYLEIGH BONNER Patient Name: NICOLAS ALBRIGHT MR#: [id number] : 1985 Exam Date: 08/21/2025 Ordering Doctor: DR KELSY LAZCANO . RADIOLOGY REPORT PROCEDURE: MM TOMOSYNTHESIS SCREENING BI COMPARISON: MM POST BIOPSY LT, 01/05/2024. MM TOMOSYNTHESIS DIAGNOSTICBI, 12/14/2023. MG MAMM DIAGNOSTIC 3D ADRIEL CAD, 01/13/2023. INDICATIONS: Screening Calculator Name NCI Breast Cancer Risk Assessment Tool 5 Year Breast Cancer Risk 0.80% Lifetime Breast Cancer Risk 7.40% Personal Breast Cancer No Personal Ovarian Cancer No Treatments None Family Cancers None LOCATION: [facility] BREAST COMPOSITION: The breasts are heterogeneously dense, which may obscure small masses. FINDINGS: RIGHT BREAST: No significant suspicious finding. Benign-appearing calcifications are redemonstrated. LEFT BREAST: No significant suspicious finding. Benign-appearing calcifications are redemonstrated. There is a biopsy clip. Similar focal asymmetries are present. DIAGNOSTIC CATEGORY 2--BENIGN FINDING. NO CHANGE FROM COMPARISON. RECOMMENDATIONS: ROUTINE MAMMOGRAM AND CLINICAL EVALUATION IN 12 MONTHS. Dictated by: Yovani Rich MD on 08/21/2025 at 16:17 Approved by: Yovani Rich MD on 08/21/2025 at 16:22 Dictated By: Yovani Rich M.D. Signed By:08/21/25 1623 DD/ 1622 TD/TT: Product Communications Manager: Authorizing ProviderResult TypeResult StatusCorey Neno DOCLINISYNC IMAGINGFinal Result documented in this encounter Visit Diagnoses Not on filedocumented in this encounter
--- OUTSIDE RECORDS SUMMARY | 2025-09-03 20:37 | XMS_ITS | Clinical Summary ---
Author Organization [facility] Address [address] [place] [address] Care Team Providers Care Carpenter Assistant Installer Name Role Phone Unavailable Primary Care Provider [...] 5Active Active Problems ProblemNoted DateDiagnosed DateAbnormal uterine wyanxhaf41/22/2023nxiety and ymttytwzvu81/22/2023ervical kqvmrjzku62/22/2023History of loop electrical excision procedure (LEEP)03/11/2023Hormone seboiyltb59/22/2023LGSIL on Pap smear of hjvpff6303/11/2023Metabolic pkcixaxt18/22/2023COS (polycystic ovarian syndrome)03/11/2023 Encounters DateTypeDepartmentCare PgmzFozjhfqzunk63/15/2025 11:20 AM ESTProcedure Visit [facility] [place] [facility] [address] [place] [address] Kelsy Lazcano, DO Well woman exam with routine gynecological exam09/03/2025amboo flowsheet [facility] [place] [facility] [address] [place] [address] Neno Kelsy, DO 08/21/2025linisync Result Encounter [facility] External Department Unsolicited NenoKelsy, DO 07/13/2025Telephone [facility] [place] [facility] [address] [place] [address] [place] [phone] Tamika Alston MA from Last 3 Months Social History Tobacco UseTypesPacks/DayYears UsedDateSmoking Tobacco: Never Assessed CommentsNoSex and Gender InformationValueDate RecordedSex Assigned at BirthNot on fileLegal GqlYagcqw15/15/2023 6:45 PM EDTGender IdentityNot on fileSexual OrientationNot on file Last Filed Vital Signs Vital SignReadingTime TakenCommentsBlood Apwpiokm272/6209/03/2025 11:45 AM EST Pulse--Temperature--Respiratory Rate--Oxygen Saturation--Inhaled Oxygen Concentration--Dcgrsg15 kg (130 lb)09/03/2025 11:45 AM MBNBtasou085.9 cm (5' 1 ) 03/11/2023 10:23 AM EDTBody Mass Index24.5606 10:23 AM EDT Plan of Treatment Not on file Procedures Procedure NamePriorityDate/TimeAssociated DiagnosisCommentsMM TOMOSYNTHESIS SCREENING BI08/21/2025 4:22 PM EST from Last 3 Months Results * MM TOMOSYNTHESIS SCREENING BI (08/21/2025 4:22 PM EST)Anatomical Region LateralityModalityOtherSpecimen (Source)Anatomical Location / Laterality Collection Method / VolumeCollection TimeReceived Time08/21/2025 4:22 PM EST Narrative 08/21/2025 4:23 PM EST [facility] ?[address] ? [place] [address] ? Mammography Report ? Signed ? Patient: NICOLAS ALBRIGHT L ?MR#: [id number] ?? : 1985 ?Acct:[id number] ?? Age/Sex: 40 / F ?ADM Date: 08/21/ ?? Loc: MAMMO ? Attending Dr: Kelsy Lazcano D.O. ? Ordering Physician: Kelsy Lazcano D.O. ?Results: ? Date of Service: 08/21/25 ?Follow Up: ? Procedure(s): MM tomosynthesis screening BI ?? Accession Number(s): [id number] ? cc: Kelsy Lazcano D.O.; KAYLEIGH BONNER ? Patient Name: ? NICOLAS TOCCACELI ? MR#: [id number] ? : 1985 ? Exam Date: 08/21/2025 [...] Cancers ? None ? LOCATION: ? [facility] ? BREAST COMPOSITION: ? The breasts are [...] ?08/21/253 ? DD/ 1622 ? TD/TT: ? Media Specialist: Procedure Note Radiology, Radiologist, MD - 08/21/2025 [place] [address] Mammography Report Signed Patient: NICOLAS ALBRIGHT LMR#: [id number] : 1985Acct:[id number] Age/Sex: 40 / FADM Date: 08/21/25 Loc: MAMMO Attending Dr: Kelsy Lazcano D.O. Ordering Physician: Kelsy Lazcano D.O.Results: Date of Service: 08/21/25Follow Up: Procedure(s): MM tomosynthesis screening BI Accession Number(s): [id number] cc: Kelsy Lazcano D.O.; KAYLEIGH BONNER Patient Name: NICOLAS ALBRIGHT MR#: [id number] : 1985 Exam Date: 08/21/2025 Ordering Doctor: [...] Treatments None Family Cancers None LOCATION: [facility] BREAST COMPOSITION: The breasts are heterogeneously dense, [...] 16:22 Dictated By: Yovani Rich M.D. Signed By:08/21/251622 DD/ 21 TD/TT: Media Specialist: Authorizing ProviderResult TypeResult StatusCorey Neno DOCLINISYNC IMAGINGFinal Result from Last 3 Months Insurance
== END 2025-09-03 20:33 | disposition home or self-care (01) ==
LOC: LAB 20:32
PROVIDERS: PCP Family Medicine; Visit Provider Obstetrics & Gynecology
DX: Z01.419 Encounter for gynecological examination (general) (routine) without abnormal findings (principal)
CPT/HCPCS: 88175